=== PATIENT | male | born 1995 | race Caucasian/White ===

== ENCOUNTER 2019-09-19 16:40 | Emergency (ER) | payer SELFPAY ==
--- NOTE | 2019-09-19 17:26 | UC ---
Skin Complaint HPI - HPI Summary HPI Summary: 24 yo male presents with 2 complaints. 1) Over the last 4-5 weeks he has noticed an itchy rash to the tops of his feet. He has been applying antifungal spray with no relief. States it castell[place] and is itchy. States that he sweats a lot and has sweaty feet. 2) Yesterday had an episode of diarrhea. Today developed lower abdominal pain that is worse in LLQ. He had an episode of diarrhea today with bright red blood "spotting" in the toiler bowl and on the toilet tissue. He has had hemorrhoids in the past, but states this was much different. He has no anal pain. He denies fever, chills, n/v, back pain. No known family history of IBD. - History of Current Complaint Time Seen by Provider: 09/19/19 17:26 Stated Complaint: RASH, PERSONAL Hx Obtained From: Patient Onset/Duration: Gradual Onset Onset Severity: Mild Current Severity: Mild Pain Intensity: 3 Pain Scale Used: 0-10 Numeric - Allergy/Home Medications Allergies/Adverse Reactions: Allergies Allergy/AdvReac Type Severity Reaction Status Date / Time No Known Allergies Allergy Verified 09/19/19 17:20 PMH/Surg Hx/FS Hx/Imm Hx - Additional Past Medical History Additional PMH: None - Surgical History Surgical History: None - Family History Known Family History: Positive: None - Social History Occupation: Employed Full-time Lives: Alone Alcohol Use: Occasionally Substance Use Type: None Smoking Status (MU): Former Smoker Review of Systems All Other Systems Reviewed And Are Negative: No Constitutional: Positive: Negative Skin: Positive: Rash Eyes: Positive: Negative ENT: Positive: Negative Respiratory: Positive: Negative Cardiovascular: Positive: Negative Gastrointestinal: Positive: Abdominal Pain, Diarrhea Genitourinary: Positive: Negative Neurovascular: Positive: Negative Neurological: Positive: Negative Psychological: Positive: Negative Physical Exam - Summary Physical Exam Summary: GENERAL: NAD. WDWN. No pain distress. SKIN: B/L dorsal feet with erythematous dry appearing rash with fissuring. NECK: Supple. Nontender. No lymphadenopathy. CHEST: CTAB. No r/r/w. No accessory muscle use. Breathing comfortably and in no distress. CV: RRR. Pulses intact. Cap refill <2seconds ABDOMEN: Soft. Mild ttp about LLQ. No distention or guarding. No CVA tenderness. Bowel sounds present RECTAL: No hemorrhoids or fissures appreciated. Internal exam revealed bright red obvious blood without appreciable internal hemorrhoid or tenderness. No stool in vault. NEURO: Alert. PSYCH: Age appropriate behavior. Triage Information Reviewed: Yes Vital Signs: Vital Signs: Temp Pulse Resp BP Pulse Ox 98.7 F 104 18 170/85 100 09/19/19 17:21 09/19/19 17:21 09/19/19 17:21 09/19/19 17:21 09/19/19 17:21 Vital Signs Reviewed: Yes Course/Dx - Course Course Of Treatment: 1) Suspect dishydrotic eczema of feet and will rx for kenalog cream 2) Given his lower abdominal pain and rectal bleeding without evidence of hemorrhoid or fissure - I recommend pt be further evaluated in the ED. He was agreeable to this and will go there now - Diagnoses Provider Diagnosis: Dyshidrotic eczema, Rectal bleed, LLQ abdominal pain Discharge ED - Sign-Out/Discharge Documenting (check all that apply): Patient Departure All imaging exams completed and their final reports reviewed: No Studies - Discharge Plan Condition: Stable Disposition: HOME-RECOMMEND TO ED Prescriptions: Triamcinolone 0.1% CREAM (NF) [Kenalog 0.1% Cream (NF)] 1 applic TOPICAL BID #1 tube Referrals: Ean Walters RPA [Primary Care Provider] - Additional Instructions: Please go to the ER for further evaluation of your blood in stool - Billing Disposition and Condition Condition: STABLE Disposition: Home-Recommend to ED
[2019-09-19 17:34] VITALS: BP 170/85
== END 2019-09-19 18:00 | disposition home health service (06) ==
LOC: UCCORT 16:40
DX: L30.1 Dyshidrosis [pompholyx] (principal); R19.7 Diarrhea, unspecified; R10.9 Unspecified abdominal pain; Z87.891 Personal history of nicotine dependence
CPT/HCPCS: 99202; G0463